=== PATIENT | male | born 1960 | race Two or more races ===

== ENCOUNTER 2019-04-25 22:00 | Emergency (ER) | payer SELFPAY ==
[~2019-04-25] VITALS: Ht 157.5 cm; Wt 74.8 kg
[~2019-04-25 22:00] MED LIST: LISI-646 PO; TAMS0.4C36 PO
[2019-04-25 23:41] VITALS: BP 153/87
[2019-04-25] MEDS ORDERED: LIDOCAINE W/ EPINEPHRINE 2% INJ 20ML VIAL IJ ONE (23:45)
== END 2019-04-26 00:21 | disposition home or self-care (01) ==
LOC: ER 22:02
DX: S01.112A Laceration without foreign body of left eyelid and periocular area, initial encounter (principal); R51 Headache; I10 Essential (primary) hypertension; F17.210 Nicotine dependence, cigarettes, uncomplicated; W19.XXXA Unspecified fall, initial encounter; Y93.89 Activity, other specified; Y99.8 Other external cause status; Y92.89 Other specified places as the place of occurrence of the external cause
CPT/HCPCS: 12014; 70450; 72125